=== PATIENT | male | born 1960 | race Caucasian/White ===

== ENCOUNTER 2018-01-20 12:30 | Observation (INO) | payer BC ==
[~2018-01-20] VITALS: Ht 180.3 cm; Wt 104.7 kg
[2018-01-20] MEDS ORDERED: ALLO300T PO (12:42)
[2018-01-20] MEDS ORDERED: CYCL5TAB PO (12:42)
[2018-01-20] MEDS ORDERED: RAMI1.2524 PO (12:42)
[2018-01-20] MEDS ORDERED: OXYcodone/APAP 5/325MG TABLET ONE (12:46)
[2018-01-20] MEDS ORDERED: METHOCARBAMOL 1,000 MG in DEXTROSE 5% 100 ML IV ONE (13:00)
[2018-01-20] MEDS ORDERED: OXYcodone/APAP 5/325MG TABLET PO ONE (13:00)
[2018-01-20] MEDS ORDERED: DEXAMETHASONE 4 MG/ML, 1ML IVPush ONE (15:00)
[2018-01-20] MEDS ORDERED: IBUPROFEN 600 MG TABLET PO PRN (16:00)
[2018-01-20] MEDS: ENOXAPARIN 40 MG/0.4 ML SQ SCH (16:00)
[2018-01-20] MEDS ORDERED: ACETAMINOPHEN 325 MG TABLET PO PRN (16:00)
[2018-01-20] MEDS ORDERED: ENALAPRILAT 1.25 MG/ML, 2ML IVPush PRN (16:00)
[2018-01-20] MEDS ORDERED: ONDANSETRON 2MG/ML, 2ML IVPush PRN (16:00)
[2018-01-20 16:15] VITALS: BP 135/90
[2018-01-20] MEDS: SODIUM CHLORIDE 0.9% 1,000 ML IV SCH (16:32)
[2018-01-20] MEDS: HYDROcodone/APAP 5/325 TABLET PO PRN (16:32)
[2018-01-20] MEDS: CYCLOBENZAPRINE 10 MG TABLET PO PRN (16:33)
[2018-01-20] MEDS: morphine SULFATE 10 MG/ML, 1ML IVPush PRN ×2 (17:48→22:58)
[2018-01-20 19:04] VITALS: BP 131/66
[2018-01-21] MEDS: CYCLOBENZAPRINE 10 MG TABLET PO PRN ×3 (00:51→15:11)
[2018-01-21] MEDS: HYDROcodone/APAP 5/325 TABLET PO PRN ×4 (00:51→21:58)
[2018-01-21 01:11] VITALS: BP 139/72
[2018-01-21] MEDS: morphine SULFATE 10 MG/ML, 1ML IVPush PRN ×2 (04:28→08:21)
[2018-01-21 04:52] LABS: BASOPHILS # (AUTO) 0.04 x10^3/uL (0-0.1); BASOPHILS % (AUTO) 1 % (0-1); EOSINOPHILS # (AUTO) 0.26 x10^3/uL (0-0.4); EOSINOPHILS % (AUTO) 3 % (1-7); LYMPHOCYTES # (AUTO) 2.12 x10^3/uL (1-3.4); LYMPHOCYTES % (AUTO) 25 % (22-44); MD NO; MEAN CORPUSCULAR HEMOGLOBIN 32.2 pg (27.5-34.5); MEAN CORPUSCULAR HGB CONC 33.8 g/dL (33.2-36.2); MEAN CORPUSCULAR VOLUME 95.2 fL (81-97); MEAN PLATELET VOLUME 7.4 fL (7.4-10.4); MONOCYTES # (AUTO) 0.91 x10^3/uL (0.2-0.8); MONOCYTES % (AUTO) 11 % (2-9); NEUTROPHILS # (AUTO) 5.14 x10^3/uL (1.8-6.8); NEUTROPHILS % (AUTO) 61 % (42-75); PLATELET COUNT 208 x10^3/uL (130-400); RED BLOOD COUNT 4.66 x10^6/uL (4.38-5.82); RED CELL DISTRIBUTION WIDTH 13.2 % (9.4-14.8)
[2018-01-21 05:03] LABS: ALBUMIN 3.4 g/dL (3.4-5.0); ANION GAP 8 mmol/L (5-15); CALCIUM 8.3 mg/dL (8.5-10.1); CHLORIDE 107 mmol/L (98-107)
[2018-01-21 05:08] LABS: ALANINE AMINOTRANSFERASE 29 U/L (12-78); ALKALINE PHOSPHATASE 84 U/L (45-117); BILIRUBIN,TOTAL 0.4 mg/dL (0.2-1.0); TOTAL PROTEIN 6.9 g/dL (6.4-8.2)
[2018-01-21 07:37] VITALS: BP 118/72
[2018-01-21] MEDS: ALLOPURINOL 100 MG TABLET PO SCH (09:00)
[2018-01-21] MEDS: LIDODERM 5% PATCH TD PRN (11:04)
[2018-01-21] MEDS: GABAPENTIN 300 MG CAPSULE PO PRN (11:04)
[2018-01-21] MEDS: SODIUM CHLORIDE 0.9% 1,000 ML IV SCH (14:00)
[2018-01-21 14:30] VITALS: BP 138/67
[2018-01-21] MEDS: ENOXAPARIN 40 MG/0.4 ML SQ SCH (15:11)
[2018-01-21 18:36] VITALS: BP 147/74
[2018-01-22] MEDS: SODIUM CHLORIDE 0.9% 1,000 ML IV SCH
[2018-01-22 00:22] VITALS: BP 133/71
[2018-01-22] MEDS: CYCLOBENZAPRINE 10 MG TABLET PO PRN ×2 (02:29→14:51)
[2018-01-22] MEDS: HYDROcodone/APAP 5/325 TABLET PO PRN ×3 (03:04→22:04)
[2018-01-22 08:23] VITALS: BP 114/69
[2018-01-22] MEDS: LIDODERM 5% PATCH TD PRN (09:53)
[2018-01-22] MEDS: ALLOPURINOL 100 MG TABLET PO SCH (09:53)
[2018-01-22] MEDS: GABAPENTIN 300 MG CAPSULE PO PRN (09:53)
[2018-01-22 14:30] VITALS: BP 151/78
[2018-01-22] MEDS: ENOXAPARIN 40 MG/0.4 ML SQ SCH (16:00)
[2018-01-22 18:33] VITALS: BP 165/65
[2018-01-23 00:45] VITALS: BP 120/70
[2018-01-23] MEDS: CYCLOBENZAPRINE 10 MG TABLET PO PRN ×3 (02:08→22:26)
[2018-01-23] MEDS: HYDROcodone/APAP 5/325 TABLET PO PRN ×5 (04:17→23:28)
[2018-01-23 08:11] VITALS: BP 118/73
[2018-01-23] MEDS: ALLOPURINOL 100 MG TABLET PO SCH (08:31)
[2018-01-23] MEDS ORDERED: LACTULOSE 20 GM/30 ML UDC PO PRN (11:00)
[2018-01-23] MEDS: DOCUSATE 100 MG CAPSULE PO SCH (11:07)
[2018-01-23 12:11] LABS: HCT (SEDRATE) 45.5 % (39.2-51.8)
[2018-01-23] MEDS: ENOXAPARIN 40 MG/0.4 ML SQ SCH (14:03)
[2018-01-23] MEDS ORDERED: GADOBUTROL 10 MMOL/10 ML PFS ONE (16:56)
[2018-01-23 17:47] VITALS: BP 145/71
[2018-01-23 19:02] VITALS: BP 105/64
[2018-01-23] MEDS: GABAPENTIN 300 MG CAPSULE PO PRN (20:17)
[2018-01-23] MEDS ORDERED: SENNA/DOCUSATE TABLET PO SCH (21:00)
[2018-01-24 00:49] VITALS: BP 123/76
[2018-01-24 07:34] VITALS: BP 108/69
[2018-01-24] MEDS: ALLOPURINOL 100 MG TABLET PO SCH (08:11)
[2018-01-24] MEDS: DOCUSATE 100 MG CAPSULE PO SCH (08:11)
[2018-01-24 12:59] VITALS: BP 113/71
[2018-01-24] MEDS ORDERED: LIDO700A20 TD (14:03)
[2018-01-24] MEDS ORDERED: GABA300C10 PO (14:03)
[2018-01-24] MEDS ORDERED: DOCU-131 PO (14:03)
[2018-01-24] MEDS ORDERED: PRED20TA PO (14:03)
[2018-01-24] MEDS ORDERED: CYCL-259 PO (14:03)
[2018-01-24] MEDS ORDERED: IBUP-1222 PO (14:03)
[2018-01-24] MEDS ORDERED: ACET325T14 PO (14:03)
[2018-01-24] MEDS: ENOXAPARIN 40 MG/0.4 ML SQ SCH (16:00)
== END 2018-01-24 16:38 | disposition home or self-care (01) ==
LOC: ED 14:49 → EDIP 14:51 → INTOOBSV 14:51 → 3NE 16:11
PROVIDERS: ADMIT Hospitalist; ATTEND Hospitalist
DX: M51.16 Intervertebral disc disorders with radiculopathy, lumbar region (principal); I10 Essential (primary) hypertension; E78.5 Hyperlipidemia, unspecified; E66.9 Obesity, unspecified; M10.9 Gout, unspecified; Z79.899 Other long term (current) drug therapy
CPT/HCPCS: 36415; 72131; 72157; 72158; 80053; 85025; 85651; 86141; 96365; 96375; 96376; 97161; 97166; 97530; 99284; A9585; G0378; J2270; J2800; J7030; J7512

== ENCOUNTER 2019-11-23 12:40 | Inpatient (IN) | payer BC ==
[~2019-11-23] VITALS: Ht 180.3 cm; Wt 110.2 kg
[~2019-11-23 12:40] MED LIST: ACET325T14 PO; ALLO300T PO; CYCL-259 PO; CYCL5TAB PO; DOCU-131 PO; GABA300C10 PO; IBUP-1222 PO; LIDO700A20 TD; PRED20TA PO; RAMI1.2524 PO
[2019-11-23] MEDS ORDERED: SODIUM CHLORIDE FLUSH 10ML SYR IVF ONE (13:30)
[2019-11-23] MEDS ORDERED: SODIUM CHLORIDE 0.9% 1,000ML IVBOLUS ONE (13:30)
[2019-11-23] MEDS ORDERED: ACETAMINOPHEN 325 MG TABLET PO ONE (13:30)
[2019-11-23] MEDS ORDERED: ONDANSETRON 2MG/ML, 2ML IVPush ONE (13:30)
[2019-11-23] MEDS ORDERED: ACETAMINOPHEN 325 MG TABLET ONE (13:33)
[2019-11-23] MEDS ORDERED: ONDANSETRON 2MG/ML, 2ML ONE (13:33)
[2019-11-23] MEDS ORDERED: MORPHINE SULFATE 4 MG/ML, 1ML ONE ×2 (13:33→17:11)
[2019-11-23] MEDS: MORPHINE SULFATE 4 MG/ML, 1ML IVPush PRN ×2 (13:37→17:16)
[2019-11-23 13:46] LABS: MICROSCOPIC NOT IND
[2019-11-23 13:58] LABS: BASOPHILS # (AUTO) 0.02 x10^3/uL (0-0.1); BASOPHILS % (AUTO) 0 % (0-1); EOSINOPHILS # (AUTO) 0.03 x10^3/uL (0-0.4); EOSINOPHILS % (AUTO) 0 % (1-7); LYMPHOCYTES # (AUTO) 1.52 x10^3/uL (1-3.4); LYMPHOCYTES % (AUTO) 12 % (22-44); MD NO; MEAN CORPUSCULAR HEMOGLOBIN 31.8 pg (27.5-34.5); MEAN CORPUSCULAR HGB CONC 32.9 g/dL (33.2-36.2); MEAN PLATELET VOLUME 7.4 fL (7.4-10.4); MONOCYTES # (AUTO) 1.17 x10^3/uL (0.2-0.8); MONOCYTES % (AUTO) 9 % (2-9); NEUTROPHILS # (AUTO) 10.13 x10^3/uL (1.8-6.8); NEUTROPHILS % (AUTO) 79 % (42-75); PLATELET COUNT 209 x10^3/uL (130-400); RED BLOOD COUNT 5.13 x10^6/uL (4.38-5.82); RED CELL DISTRIBUTION WIDTH 13.9 % (9.4-14.8)
--- NOTE | 2019-11-23 13:59 | NUR ---
PT RESTING IN BED, PT AO X4 AND ON MONITOR. PT DENIED WANTS OR NEEDS AT THIS TIME. RN WILL CONTINUE TO MONITOR PT VSS
[2019-11-23 14:10] LABS: ALANINE AMINOTRANSFERASE 128 U/L (12-78); ANION GAP 8 mmol/L (5-15); CALCIUM 9.1 mg/dL (8.5-10.1); CHLORIDE 106 mmol/L (98-107); CREATININE 0.82 mg/dL (0.7-1.3)
[2019-11-23 14:12] LABS: ALKALINE PHOSPHATASE 165 U/L (45-117); BILIRUBIN,TOTAL 0.9 mg/dL (0.2-1.0)
--- NOTE | 2019-11-23 14:15 | NUR ---
CT CAME FOR PT THEN LEFT FOR UNKOWN REASON WITHOUT TAKING PT TO CT
[2019-11-23] MEDS ORDERED: METRONIDAZOLE PMX 500MG/100ML 100 ML IV ONE (15:00)
[2019-11-23] MEDS ORDERED: CEFTRIAXONE PMX 1GM/50ML 50 ML IV ONE (15:00)
--- NOTE | 2019-11-23 15:11 | NUR ---
care assumed from dalton corona in room for eval. plan adm/abx. as
[2019-11-23] MEDS ORDERED: CEFTRIAXONE PMX 1GM/50ML 50 ML ONE (15:12)
[2019-11-23] MEDS ORDERED: METRONIDAZOLE PMX 500MG/100ML 100 ML ONE (16:17)
--- NOTE | 2019-11-23 16:54 | NUR ---
TASK RN, COVERING MEAL BREAK. PT UP TO BR, STEADY GAIT. FLAGYL INFUSING PER EMAR. VSS/UPDATED IN COMPUTER. CALL LIGHT WITHIN REACH.
[2019-11-23] MEDS ORDERED: CYCLOBENZAPRINE 10 MG TABLET PO PRN (17:00)
[2019-11-23] MEDS ORDERED: ONDANSETRON 2MG/ML, 2ML IVPush PRN (17:00)
[2019-11-23] MEDS ORDERED: TEMAZEPAM 15 MG CAPSULE PO PRN (17:00)
[2019-11-23] MEDS ORDERED: GABAPENTIN 300 MG CAPSULE PO PRN (17:00)
[2019-11-23] MEDS ORDERED: ONDANSETRON ODT 4 MG PO PRN (17:00)
[2019-11-23] MEDS ORDERED: LIDODERM 5% PATCH TD PRN (17:00)
[2019-11-23] MEDS ORDERED: ROVASTATIN PO (17:01)
--- NOTE | 2019-11-23 17:08 | NUR ---
REVIEW OF CHART, REGULAR DIET TRAY ORDERED PER ADMIT ORDER.
--- NOTE | 2019-11-23 17:42 | NUR ---
shanika swab walked to lab. jameel was in to see pt. as
--- NOTE | 2019-11-23 18:25 | NUR ---
report to alice pineda. as
[2019-11-23 19:01] VITALS: BP 133/69
[2019-11-23] MEDS: KETOROLAC 30 MG/1 ML IV PRN (20:31)
[2019-11-23] MEDS: morphine SULFATE 10 MG/ML, 1ML IVPush PRN ×2 (20:31→23:42)
[2019-11-24 00:12] VITALS: BP 124/75
[2019-11-24] MEDS: METRONIDAZOLE PMX 500MG/100ML 100 ML IV SCH ×3 (00:17→18:15)
[2019-11-24] MEDS: KETOROLAC 30 MG/1 ML IV PRN ×3 (02:40→15:15)
[2019-11-24 06:00] LABS: ALANINE AMINOTRANSFERASE 320 U/L (12-78); ALBUMIN 3.2 g/dL (3.4-5.0); ANION GAP 7 mmol/L (5-15); CALCIUM 8.5 mg/dL (8.5-10.1); CHLORIDE 104 mmol/L (98-107); CREATININE 1.19 mg/dL (0.7-1.3)
[2019-11-24 06:02] LABS: ALKALINE PHOSPHATASE 282 U/L (45-117); TOTAL PROTEIN 6.6 g/dL (6.4-8.2)
[2019-11-24 06:14] LABS: BASOPHILS # (AUTO) 0.03 x10^3/uL (0-0.1); BASOPHILS % (AUTO) 0 % (0-1); EOSINOPHILS # (AUTO) 0.08 x10^3/uL (0-0.4); EOSINOPHILS % (AUTO) 1 % (1-7); LYMPHOCYTES % (AUTO) 13 % (22-44); MD NO; MEAN CORPUSCULAR HGB CONC 33.2 g/dL (33.2-36.2); MEAN PLATELET VOLUME 7.3 fL (7.4-10.4); MONOCYTES # (AUTO) 1.09 x10^3/uL (0.2-0.8); MONOCYTES % (AUTO) 13 % (2-9); NEUTROPHILS # (AUTO) 6.42 x10^3/uL (1.8-6.8); NEUTROPHILS % (AUTO) 74 % (42-75); PLATELET COUNT 186 x10^3/uL (130-400); RED BLOOD COUNT 4.64 x10^6/uL (4.38-5.82)
[2019-11-24 06:50] VITALS: BP 104/64
[2019-11-24] MEDS ORDERED: BUPIVACAINE/PF 0.5% ONE (07:04)
[2019-11-24] MEDS ORDERED: EPINEPHRINE 1 MG/ML, 1ML ONE (07:05)
[2019-11-24] MEDS: ALLOPURINOL 300 MG TABLET PO SCH (09:00)
[2019-11-24] MEDS: RAMIPRIL 5 MG CAP PO SCH (09:00)
[2019-11-24] MEDS: morphine SULFATE 10 MG/ML, 1ML IVPush PRN ×3 (09:11→20:27)
[2019-11-24 14:35] VITALS: BP 97/55
[2019-11-24] MEDS: CEFTRIAXONE PMX 2GM/50ML 50 ML IV SCH (15:15)
[2019-11-24 21:27] VITALS: BP 107/65
[2019-11-25 00:24] VITALS: BP 90/49
[2019-11-25] MEDS: SODIUM CHLORIDE 0.9% 1,000 ML IV SCH ×3 (01:52→23:15)
[2019-11-25] MEDS: METRONIDAZOLE PMX 500MG/100ML 100 ML IV SCH ×3 (01:53→18:00)
[2019-11-25] MEDS: KETOROLAC 30 MG/1 ML IV PRN ×2 (06:09→19:30)
[2019-11-25] MEDS: ALLOPURINOL 300 MG TABLET PO SCH (07:51)
[2019-11-25] MEDS: RAMIPRIL 5 MG CAP PO SCH (07:51)
[2019-11-25 09:34] VITALS: BP 124/70
[2019-11-25] MEDS ORDERED: PROPOFOL 10 MG/ML, 20ML ONE (10:23)
[2019-11-25] MEDS ORDERED: DEXAMETHASONE 4 MG/ML, 1ML ONE (10:23)
[2019-11-25] MEDS ORDERED: ONDANSETRON 2MG/ML, 2ML ONE (10:23)
[2019-11-25] MEDS ORDERED: ROCURONIUM 10MG/ML,5ML ONE (10:23)
[2019-11-25] MEDS ORDERED: KETOROLAC 30 MG/1 ML ONE (10:23)
[2019-11-25] MEDS ORDERED: SUCCINYLCHOLINE 20 MG/ML, 10ML ONE (10:23)
[2019-11-25] MEDS ORDERED: CHLORHEXIDINE 15 ML UDC ONE (12:33)
[2019-11-25] MEDS ORDERED: CHLORHEXIDINE 15 ML UDC MM ONE (13:00)
[2019-11-25] MEDS ORDERED: BUPIVACAINE/PF 0.5% ONE (13:46)
[2019-11-25] MEDS ORDERED: EPINEPHRINE 1 MG/ML, 1ML ONE (13:46)
[2019-11-25] MEDS ORDERED: MIDAZOLAM 1 MG/ML, 2ML ONE (13:46)
[2019-11-25] MEDS ORDERED: PROPOFOL 50 ML ONE (13:47)
[2019-11-25] MEDS ORDERED: FENTANYL PF 250 MCG/5ML ONE (13:47)
[2019-11-25] MEDS ORDERED: OXYcodone 5 MG/5 ML ORAL.SOL UDC ONE (14:58)
[2019-11-25] MEDS ORDERED: FENTANYL PF 100 MCG/2ML ONE (14:58)
[2019-11-25] MEDS ORDERED: MEPERIDINE/PF 25MG/ML,1ML ONE (14:58)
[2019-11-25] MEDS ORDERED: FENTANYL PF 100 MCG/2ML IV PRN (15:00)
[2019-11-25] MEDS ORDERED: DIAZEPAM 5 MG/ML, 2ML IVPush PRN (15:00)
[2019-11-25] MEDS ORDERED: EPHEDRINE 50 MG/ML, 1ML IM PRN (15:00)
[2019-11-25] MEDS ORDERED: morphine SULFATE 10 MG/ML, 1ML IVPush PRN (15:00)
[2019-11-25] MEDS ORDERED: EPHEDRINE 50 MG/ML, 1ML IVPush PRN (15:00)
[2019-11-25] MEDS ORDERED: DIPHENHYDRAMINE 50 MG/ML, 1ML IVPush PRN (15:00)
[2019-11-25] MEDS ORDERED: LABETALOL 5MG/ML, 20ML IV PRN (15:00)
[2019-11-25] MEDS ORDERED: ONDANSETRON 2MG/ML, 2ML IVPush PRN (15:00)
[2019-11-25] MEDS ORDERED: PROMETHAZINE 25 MG/ML, 1ML IVPush PRN (15:00)
[2019-11-25] MEDS ORDERED: OXYcodone 5 MG/5 ML ORAL.SOL UDC PO PRN (15:00)
[2019-11-25] MEDS ORDERED: MEPERIDINE/PF 25MG/0.5ML IVPush PRN (15:00)
[2019-11-25] MEDS: ACETAMINOPHEN 325 MG TABLET PO PRN (19:30)
[2019-11-25 20:00] VITALS: BP 132/71
[2019-11-25] MEDS: CEFTRIAXONE PMX 2GM/50ML 50 ML IV SCH (21:15)
[2019-11-25] MEDS: OXYcodone IR 5MG TABLET PO PRN (23:08)
[2019-11-26 00:43] VITALS: BP 104/62
[2019-11-26] MEDS: ACETAMINOPHEN 325 MG TABLET PO PRN ×2 (00:45→03:30)
[2019-11-26] MEDS: METRONIDAZOLE PMX 500MG/100ML 100 ML IV SCH ×2 (01:51→10:00)
[2019-11-26 04:00] VITALS: BP 114/62
[2019-11-26] MEDS: OXYcodone IR 5MG TABLET PO PRN ×2 (05:23→11:26)
[2019-11-26 05:49] LABS: BASOPHILS # (AUTO) 0.03 x10^3/uL (0-0.1); BASOPHILS % (AUTO) 0 % (0-1); EOSINOPHILS % (AUTO) 0 % (1-7); LYMPHOCYTES # (AUTO) 1.07 x10^3/uL (1-3.4); LYMPHOCYTES % (AUTO) 10 % (22-44); MD NO; MEAN CORPUSCULAR HEMOGLOBIN 32.1 pg (27.5-34.5); MEAN CORPUSCULAR HGB CONC 32.8 g/dL (33.2-36.2); MEAN PLATELET VOLUME 7.4 fL (7.4-10.4); MONOCYTES # (AUTO) 0.68 x10^3/uL (0.2-0.8); MONOCYTES % (AUTO) 6 % (2-9); NEUTROPHILS # (AUTO) 9.45 x10^3/uL (1.8-6.8); NEUTROPHILS % (AUTO) 84 % (42-75); PLATELET COUNT 202 x10^3/uL (130-400); RED BLOOD COUNT 4.26 x10^6/uL (4.38-5.82); RED CELL DISTRIBUTION WIDTH 13.7 % (9.4-14.8)
[2019-11-26 05:50] LABS: CHLORIDE 109 mmol/L (98-107)
[2019-11-26 05:56] LABS: ALANINE AMINOTRANSFERASE 177 U/L (12-78); ALKALINE PHOSPHATASE 214 U/L (45-117); ANION GAP 7 mmol/L (5-15); BILIRUBIN,TOTAL 1.2 mg/dL (0.2-1.0); CALCIUM 8.7 mg/dL (8.5-10.1); CREATININE 0.86 mg/dL (0.7-1.3); TOTAL PROTEIN 6.6 g/dL (6.4-8.2)
[2019-11-26 08:08] VITALS: BP 101/55
[2019-11-26] MEDS: RAMIPRIL 5 MG CAP PO SCH (09:07)
[2019-11-26] MEDS: ALLOPURINOL 300 MG TABLET PO SCH (09:07)
[2019-11-26] MEDS ORDERED: OXYC5TAB3 PO (09:42)
[2019-11-26] MEDS: SODIUM CHLORIDE 0.9% 1,000 ML IV SCH (10:00)
[2019-11-26 11:19] VITALS: BP 117/66
== END 2019-11-26 12:30 | disposition home or self-care (01) | DRG 418 ==
LOC: ED 14:57 → EDIP 15:51 → OBSVTOIN 15:51 → INTOOBSV 15:51 → 4NE 18:45 → DCLOUNGE 11-26 12:15
PROVIDERS: ADMIT Internal Medicine; ATTEND Hospitalist
PROC: 0FT44ZZ Resection of Gallbladder, Percutaneous Endoscopic Approach (ICD-10-PCS; principal; 2019-11-25 14:15)
DX: K81.2 Acute cholecystitis with chronic cholecystitis (principal); B17.9 Acute viral hepatitis, unspecified; E78.5 Hyperlipidemia, unspecified; I10 Essential (primary) hypertension; M10.9 Gout, unspecified; Z20.828 Contact with and (suspected) exposure to other viral communicable diseases; Z79.899 Other long term (current) drug therapy
CPT/HCPCS: 36415; 96361; 96365; 96375; 96376; 99285; S0020; 74176; 74181; 80053; 81003; 83690; 85025; 87635; 88304; 93005; G0378; J0171; J0696; J1100; J1885; J2250; J2405; J2704; J3010; J0330; J2270; J7030